=== PATIENT | male | born 1990 | race Two or more races ===

== ENCOUNTER 2018-01-17 09:53 | Emergency (ER) | payer MEDICAID ==
[~2018-01-17] VITALS: Ht 165.1 cm; Wt 76.7 kg
--- NOTE | 2018-01-17 10:08 | NUR ---
pt is in room #2a. dr Marie evaluated the pt.
[2018-01-17] MEDS ORDERED: HYDROMORPHONE 1 MG/1 ML DISP.SYRIN IV ONE (10:30)
[2018-01-17] MEDS ORDERED: diphenhydrAMINE 50 MG/1 ML VIAL IV ONE (10:30)
[2018-01-17] MEDS ORDERED: HYDROMORPHONE 4 MG/1 ML DISP.SYRIN ONE (10:34)
[2018-01-17] MEDS ORDERED: diphenhydrAMINE 50 MG/1 ML VIAL ONE (10:34)
[2018-01-17 11:10] VITALS: BP 125/84
--- NOTE | 2018-01-17 11:10 | NUR ---
PT WAS D/C TO HOME. D/C INSTRUCTIONS GIVEN TO THE PT.
== END 2018-01-17 11:11 | disposition home or self-care (01) ==
LOC: ER 09:55
DX: M25.522 Pain in left elbow (principal); M25.562 Pain in left knee
CPT/HCPCS: A4663; J1170; J1200

== ENCOUNTER 2018-01-21 05:08 | Emergency (ER) | payer MEDICAID ==
[~2018-01-21] VITALS: Ht 165.1 cm; Wt 77.1 kg
--- NOTE | 2018-01-21 05:25 | NUR ---
YUVAL CASAREZ MD AT BEDSIDE FOR MSE.
[2018-01-21] MEDS ORDERED: MORPHINE SULFATE 4 MG/1 ML DISP.SYRIN IV ONE (05:30)
[2018-01-21] MEDS ORDERED: ONDANSETRON 4 MG/2 ML VIAL IV ONE (05:30)
[2018-01-21] MEDS ORDERED: diphenhydrAMINE 50 MG/1 ML VIAL IV ONE (05:30)
[2018-01-21] MEDS ORDERED: MORPHINE SULFATE 4 MG/1 ML DISP.SYRIN ONE (05:35)
[2018-01-21] MEDS ORDERED: diphenhydrAMINE 50 MG/1 ML VIAL ONE (05:35)
[2018-01-21] MEDS ORDERED: ONDANSETRON 4 MG/2 ML VIAL ONE (05:36)
--- NOTE | 2018-01-21 06:05 | NUR ---
UNABLE TO OBTAIN IV ACCESS AFTER MULTIPLE ATTEMPTS. MD MOTT. WAS INSTRUCTED BY MD TO GIVE ORDERED MEDS IM INSTEAD.
--- NOTE | 2018-01-21 06:09 | NUR ---
Patient discharged to home in stable conditon. Written and verbal after care instructions given. Patient verbalizes understanding of instructions. Pt ambulates from ER w/ steady gait. No distress noted.
[2018-01-21 06:13] VITALS: BP 121/65
== END 2018-01-21 06:14 | disposition home or self-care (01) ==
LOC: ER 05:13
DX: K50.90 Crohn's disease, unspecified, without complications (principal); F17.210 Nicotine dependence, cigarettes, uncomplicated; F12.10 Cannabis abuse, uncomplicated
CPT/HCPCS: A4663; J1200; J2270; J2405